=== PATIENT | female | born 1970 | race Caucasian/White ===

== ENCOUNTER 2023-12-21 09:39 | Emergency (ER) | payer BC ==
[~2023-12-21] VITALS: Ht 152.4 cm; Wt 63.5 kg
[~2023-12-21 09:39] MED LIST: GLIP5TAB13 PO; GLU500 PO; LISI10TA29 PO; PRO40 PO
[2023-12-21 09:45] VITALS: BP_SYST 135; PULSE 112; RESP 19; TEMP 98.1; O2SAT 97
[2023-12-21 10:19] LABS: BASOPHILS % (AUTO) 0.3 % (0.0-2.0); EOSINOPHILS # (AUTO) 0.2 K/uL (0.0-0.4); EOSINOPHILS % (AUTO) 2.3 % (0.0-4.0); HEMATOCRIT 45.5 % (36-48); HEMOGLOBIN 15.7 g/dL (12.0-16.0); LYMPHOCYTES % (AUTO) 11.6 % (20.5-51.5); MEAN CORPUSCULAR HEMOGLOBIN 32 pg (27-31); MEAN CORPUSCULAR HGB CONC 35 % (32-36); MEAN CORPUSCULAR VOLUME 92 fL (79.0-98.0); MONOCYTES # (AUTO) 0.5 K/uL (0.0-1.0); MONOCYTES % (AUTO) 6.2 % (1.7-9.3); NEUTROPHILS # (AUTO) 6.8 K/uL (1.8-7.7); NEUTROPHILS % (AUTO) 79.6 % (40.0-70.0); PLATELET COUNT (AUTO) 368 K/uL (130-430); RED BLOOD CELL COUNT(AUTO) 4.95 MIL/uL (4.2-6.2); RED CELL DISTRIBUTION WIDTH 13.9 % (9.0-15.0); WHITE BLOOD COUNT (AUTO) 8.5 K/uL (4.8-10.8)
[2023-12-21 10:38] LABS: ANION GAP 12 (5-15); CARBON DIOXIDE 25 mmol/L (23-29); CHLORIDE 105 mmol/L (98-107); GFR AFRICAN AMERICAN 134 mL/min (>90); GLUCOSE 116 mg/dL (74-106); POTASSIUM 3.8 mmol/L (3.5-5.1); SODIUM SERUM 142 mmol/L (136-145); UREA NITROGEN, BLOOD 11 mg/dL (8-21)
[2023-12-21 10:41] LABS: BILIRUBIN,URINE NEGATIVE (NEGATIVE); BLOOD, URINE NEGATIVE (NEGATIVE); CLARITY/URINE CLEAR (CLEAR); COLOR,URINE YELLOW (YELLOW); GLUCOSE,URINE 3+ (NEGATIVE); KETONES,URINE NEGATIVE (NEGATIVE); LEUKOCYTE ESTERASE ,URINE NEGATIVE (NEGATIVE); NITRITE, URINE NEGATIVE (NEGATIVE); PROTEIN URINE NEGATIVE (NEGATIVE); UROBILINOGEN,URINE 0.2 (0.2-1.0)
[2023-12-21 10:42] LABS: GFR NON AFRICAN-AMERICAN 111 mL/min (>90)
[2023-12-21 10:53] LABS: ALANINE AMINOTRANSFERASE 36 U/L (12-78); AMYLASE 41 U/L (0-100); ASPARTATE AMINOTRANSFERASE 12 U/L (10-37); BILIRUBIN,DIRECT 0.1 mg/dL (0.0-0.3); LACTATE DEHYDROGENASE 150 U/L (81-234); LIPASE 34 U/L (16-77); TOTAL BILIRUBIN 0.5 mg/dL (0.0-1.0); TOTAL PROTEIN, SERUM 7.8 g/dL (6.4-8.3)
[2023-12-21] MEDS ORDERED: OMEP20CA15 PO (11:38)
[2023-12-21] MEDS ORDERED: HYDR-3917 PO (11:38)
[2023-12-21 12:05] VITALS: BP_SYST 129; PULSE 100; RESP 18; TEMP 98.9; O2SAT 97
== END 2023-12-21 12:00 | disposition home or self-care (01) ==
LOC: SED 09:39
DX: R10.9 Unspecified abdominal pain (principal); R11.0 Nausea; E11.9 Type 2 diabetes mellitus without complications; K21.9 Gastro-esophageal reflux disease without esophagitis; I10 Essential (primary) hypertension; Z88.8 Allergy status to other drugs, medicaments and biological substances; Z79.899 Other long term (current) drug therapy
CPT/HCPCS: 36415; 80048; 80076; 81001; 81003; 82150; 83605; 83615; 83690; 84484; 85025; 85610; 85730; 99284